=== PATIENT | male | born 1985 | race Caucasian/White ===

== ENCOUNTER 2019-12-28 11:39 | Emergency (ER) | payer MEDICAID ==
[~2019-12-28] VITALS: Ht 182.9 cm; Wt 99.8 kg
[2019-12-28 15:13] VITALS: BP 137/90
== END 2019-12-28 16:45 | disposition home or self-care (01) ==
LOC: ER 11:39
DX: J32.9 Chronic sinusitis, unspecified (principal); R11.2 Nausea with vomiting, unspecified; F17.200 Nicotine dependence, unspecified, uncomplicated; Z88.5 Allergy status to narcotic agent